=== PATIENT | male | born 1975 | race Caucasian/White ===

== ENCOUNTER 2017-02-02 11:19 | Emergency (ER) | payer MEDICAID ==
[2016-07-03 11:32] VITALS: BMI 37.4
[~2017-02-02 11:19] MED LIST: BUPROPION HCL150 M1 PO; COZAAR100 MG PO; NORVASC10 MG PO; OXYCODONE HCL10 MG PO; PROTONIX40 MG PO; VICTOZA0.6 MG/0.1 SQ
[2017-02-02 12:16] LABS: BASOPHILS 0.2 % (0.0-2.0); EOSINOPHILS 0.6 % (0-7); HEMATOCRIT 48.5 % (42.0-54.0); HEMOGLOBIN 16.8 g/dL (13.5-17.5); IMMATURE GRANULOCYTES 1.8 % (0-5); MCHC 34.6 g/dL (31.0-37.0); MCV 80.8 fL (80.0-100.0); MEAN PLATELET VOLUME 9.8 fL (7.4-10.4); MONOCYTES 5.1 % (2-11); NEUTROPHILS 74.3 % (40-80); PLATELET COUNT 222 10x3/uL (130-400); RDW 13.3 % (11.5-14.5); WBC 10.2 10x3/uL (4.8-10.8)
[2017-02-02 12:44] LABS: ALKALINE PHOSPHATASE 88 U/L (46-116); ALT (SGPT) 58 U/L (10-68); BILIRUBIN - TOTAL 0.45 mg/dL (0.2-1.3); CALC OSMOLALITY 275 mosm/kg (275-300); CALCIUM 9.3 mg/dL (8.5-10.1); CARBON DIOXIDE 23.8 mmol/L (21.0-32.0); CHLORIDE - SERUM 99 mmol/L (98-107); CREATININE - SERUM 0.9 mg/dL (0.6-1.3); GLUCOSE 241 mg/dL (74-106); POTASSIUM - SERUM 3.6 mmol/L (3.5-5.1); PROTEIN - SERUM 8.8 g/dL (6.4-8.2); SODIUM 134 mmol/L (136-145); UREA NITROGEN 13 mg/dL (7-18); eGFR NON AFRICAN AMERICAN > 90 mL/min (90-120)
[2017-02-02 12:51] LABS: CREATINE KINASE 128 UL (21-232)
[2017-02-02 12:53] LABS: TROPONIN-I < 0.017 ng/mL (0.000-0.060)
== END 2017-02-02 16:44 | disposition home or self-care (01) ==
LOC: D.ER 11:19
PROVIDERS: Family Medicine
DX: R07.89 Other chest pain (principal); R51 Headache; G47.30 Sleep apnea, unspecified; R00.0 Tachycardia, unspecified

== ENCOUNTER 2017-08-23 05:41 | Day surgery (SDC) | payer MEDICAID ==
[2017-08-22 15:29] LABS: HEMATOCRIT 43.5 % (42.0-54.0); HEMOGLOBIN 14.4 g/dL (13.5-17.5); MCH 27.8 pg (26.0-34.0); MCHC 33.1 g/dL (31.0-37.0); MEAN PLATELET VOLUME 9.2 fL (7.4-10.4); RBC 5.18 10x6/uL (4.20-6.10); RDW 13.3 % (11.5-14.5); WBC 7.1 10x3/uL (4.8-10.8)
[2017-08-22 15:42] LABS: CALC OSMOLALITY 282 mosm/kg (275-300); CALCIUM 9.1 mg/dL (8.5-10.1); CARBON DIOXIDE 26.1 mmol/L (21.0-32.0); CHLORIDE - SERUM 105 mmol/L (98-107); GLUCOSE 93 mg/dL (74-106); POTASSIUM - SERUM 3.7 mmol/L (3.5-5.1); SODIUM 141 mmol/L (136-145); UREA NITROGEN 19 mg/dL (7-18); eGFR NON AFRICAN AMERICAN 87 mL/min (90-120)
[~2017-08-23 05:41] MED LIST changes: +BUPROPION HCL100 M1 PO; -BUPROPION HCL150 M1 PO; +HYDROCODONE-APA1 TAB PO; +HYZAAR 100-25 T1 TAB PO; +VYVANSE60 MG PO
[2017-08-23 11:45] VITALS: BP 125/76; BMI 38.7
[2017-08-23] MEDS ORDERED: DILAUDID4 MG PO (17:30)
--- NOTE | 2017-08-23 18:23 | NUR ---
1805 BACK FROM LEFT SHOULDER SURGERY. DRESSING WITH SLIGHT BLOOD NOTED. ICE PACK APPLIED ARM IN SLING HAS BLOCK FINGERS NUMB. DENIES PAIN. PRESENT AND C/L IN REACH. FULL LIQUIDS SERVED.
--- NOTE | 2017-08-23 18:43 | NUR ---
183 ICE PACK TO RT SHOULDER. PAIN LEVEL A 1. STATES i AM SLEEPY. RESP NONLABORED. RT ARM IN SLING.
--- NOTE | 2017-08-23 18:46 | NUR ---
1846 WENT OVER DISCHARGE INSTRUCTIONS SCRIPT TO BE FILLED AND ICE PACK X 48 HOURS. KEEP SLING SHOT ON. INSTRUCTED ON CALLING OFFICE TOMORROW FOR APPOINTMENT DATE AND TIME NEEDS APPOINTMENT IN 10 TO 14 DAYS. WENT OVER DISHARE SHEET FOR SHOULDER AND BLOCK SHEET WITH PATIENT AND .VERBALLY UNDERSTANDS.
--- NOTE | 2017-08-23 19:18 | NUR ---
1914 DISCHARGED TO HOME WITH VIA W/C.
--- NOTE | 2017-08-23 19:18 | NUR ---
1905 IV DCD CATHETER INTACT. UP AND ARM IN SLING SHOT AND ASSISTED WITH DRESSING.
--- NOTE | 2017-09-03 14:00 | OP ---
PATIENT NAME: NETTIE HO MEDICAL RECORD: [id number] :76 LOCATION:[facility] ADMISSION DATE: SURGEON: DEONDRE BOUDREAUX MD DATE OF OPERATION: 08/23/2017 PREOPERATIVE DIAGNOSES: SLAP lesion of the left shoulder with biceps tendinitis, acromioclavicular arthritis. POSTOPERATIVE DIAGNOSES: SLAP lesion of the left shoulder with biceps tendinitis, acromioclavicular arthritis. PROCEDURES: 1. Arthroscopic SLAP repair. 2. Arthroscopic tenodesis. 3. Arthroscopic distal clavicle excision. SURGEON: Deondre Boudreaux MD ANESTHESIA: General. INTRAOPERATIVE COMPLICATIONS: None. SUMMARY OF PATHOLOGIC FINDINGS: Severe biceps tendinitis associated with very complex labral tear, essentially from the 9 o'clock to the 3 o'clock position requiring anterior superior and posterior superior fixation. Given the amount of biceps tendinitis as well as biceps tendon damage, I felt like that tenodesis was also required as well as debridement of the acromioclavicular joint. OPERATIVE SUMMARY IN DETAIL: After obtaining the appropriate preoperative orthopedic surgery consent as well as anesthetic consultation, evaluation, and clearance, the patient was brought to the operating room and placed on the operating table in supine position. After general laryngeal mask airway was administered, the patient was placed in a right lateral decubitus position. All pressure points were well padded to include down the peroneal pad as well as axillary roll. The patient was held firmly to the operating table using the vacuum pack suction system. Left upper extremity and shoulder were then prepped and draped in routine sterile fashion. The arm was held in the Arthrex traction boom at 30 degrees of forward flexion, 30 degrees of abduction with 10 pounds of traction laterally. Arthroscopy was established in the glenohumeral joint from the posterior portal. Anterior portal was established in the anterior safe interval. An accessory tertiary portal of Neviasea was created for the multiple 2.9 PushLocks that were needed. The entire superior aspect of the glenoid was debrided and decorticated in preparation for reapproximation. A total of 4 suture anchors were placed, 2 anterior and 2 posterior to the bicipital labral complex. This resulted in very good reapproximation of the labrum anteriorly and posteriorly using FiberTape. Next, the biceps tendon was tenotomized while being held with a spinal needle and in the groove. Dissection was carried down to the biceps tendon under then direct arthroscopic visualization, further debridement of the bicipital groove was carried out. At this point, a size 9 biceps Bio-Tenodesis screw from Arthrex was then deployed using the Bio-Tenodesis kit with good anchor fixation of the biceps tendon. Having completed this, attention was turned to the subacromial space. The patient did not need repeat subacromial decompression; however, the distal clavicle required further debridement and complete excision for the entire 1 cm after regrowth. This was done under a separate anterior arthroscopic portal under direct OPERATIVE REPORT [id number] NETTIE HO visualization. Having completed this, arthroscopy portals were closed in routine interrupted fashion using 4-0 Prolene. Sterile dressings were applied. The patient was awakened and taken to recovery room in stable condition. All final needle and sponge counts were correct. TRANSINT:[id number] Voice Confirmation ID: [id number] DOCUMENT ID: [id number] DEONDRE BOUDREAUX MD at 1400 CC: [id number] DICTATION DATE: 08/31/17 1112 MULTIFOLD OPERATOR: 08/31/17 1149 [facility] 08/23/17 [facility] [address] [place] [address]
== END 2017-08-23 19:15 | disposition home or self-care (01) ==
LOC: D.OPS 05:41 → D.PAN 16:30 → D.OPS 16:30
PROVIDERS: Anesthesiology
DX: S43.432A Superior glenoid labrum lesion of left shoulder, initial encounter (principal); M19.012 Primary osteoarthritis, left shoulder; M75.22 Bicipital tendinitis, left shoulder; I10 Essential (primary) hypertension; K21.9 Gastro-esophageal reflux disease without esophagitis; G47.30 Sleep apnea, unspecified; Z01.812 Encounter for preprocedural laboratory examination

== ENCOUNTER 2017-11-07 22:44 | Emergency (ER) | payer MEDICAID ==
[~2017-11-07 22:44] MED LIST changes: +DILAUDID4 MG PO
[2017-11-07 23:39] LABS: APPEARANCE CLEAR (CLEAR); BILIRUBIN NEGATIVE (NEGATIVE); COLOR YELLOW (YELLOW); GLUCOSE NEGATIVE (NEGATIVE); KETONE NEGATIVE (NEGATIVE); NITRITE NEGATIVE (NEGATIVE); PROTEIN NEGATIVE (NEGATIVE); UROBILINOGEN NORMAL (NORMAL)
[2017-11-07 23:40] LABS: BACTERIA FEW /hpf (NONE SEEN); EPITHELIAL CELLS 0-5 /hpf (0-5); MUCUS >1+ /lpf (NONE SEEN); RED CELLS - URINE 0-5 /hpf (0-5); WHITE CELLS - URINE 0-5 /hpf (0-5)
[2017-11-07 23:58] LABS: HEMATOCRIT 37.4 % (42.0-54.0); HEMOGLOBIN 12.7 g/dL (13.5-17.5); LYMPHOCYTES 20.6 % (15-50); MCH 27.1 pg (26.0-34.0); MCV 79.7 fL (80.0-100.0); MEAN PLATELET VOLUME 8.7 fL (7.4-10.4); NEUTROPHILS 71.9 % (40-80); PLATELET COUNT 250 10x3/uL (130-400); RBC 4.69 10x6/uL (4.20-6.10); RDW 13.6 % (11.5-14.5); WBC 11.3 10x3/uL (4.8-10.8)
[2017-11-08 00:07] LABS: ALBUMIN 3.8 g/dL (3.4-5.0); ALKALINE PHOSPHATASE 86 U/L (46-116); ALT (SGPT) 41 U/L (10-68); BILIRUBIN - TOTAL 0.24 mg/dL (0.2-1.3); CALC OSMOLALITY 283 mosm/kg (275-300); CALCIUM 9.2 mg/dL (8.5-10.1); CARBON DIOXIDE 27.1 mmol/L (21.0-32.0); CHLORIDE - SERUM 103 mmol/L (98-107); GLUCOSE 113 mg/dL (74-106); POTASSIUM - SERUM 3.5 mmol/L (3.5-5.1); PROTEIN - SERUM 7.7 g/dL (6.4-8.2); SODIUM 141 mmol/L (136-145); UREA NITROGEN 17 mg/dL (7-18); eGFR NON AFRICAN AMERICAN 87 mL/min (90-120)
== END 2017-11-08 03:51 | disposition home or self-care (01) ==
LOC: D.ER 22:44
PROVIDERS: Family Medicine
DX: R10.9 Unspecified abdominal pain (principal); I10 Essential (primary) hypertension

== ENCOUNTER → 2017-11-08 15:58 | Outpatient (CLI) | payer MEDICAID | END | disposition home or self-care (01) | LOC: D.CT 15:58 | DX: R91.8 Other nonspecific abnormal finding of lung field (principal); N28.89 Other specified disorders of kidney and ureter ==

== ENCOUNTER 2017-11-08 18:31 | Emergency (ER) | payer MEDICAID ==
[2017-11-08 19:45] LABS: APPEARANCE CLEAR (CLEAR); BILIRUBIN NEGATIVE (NEGATIVE); COLOR YELLOW (YELLOW); GLUCOSE NEGATIVE (NEGATIVE); KETONE NEGATIVE (NEGATIVE); NITRITE NEGATIVE (NEGATIVE); PROTEIN NEGATIVE (NEGATIVE); SPECIFIC GRAVITY 1.015 (1.005-1.020); UROBILINOGEN NORMAL (NORMAL)
[2017-11-08 19:46] LABS: RED CELLS - URINE 0-5 /hpf (0-5)
== END 2017-11-08 21:43 | disposition home or self-care (01) ==
LOC: D.ER 18:31
PROVIDERS: Family Medicine
DX: R31.9 Hematuria, unspecified (principal); R10.9 Unspecified abdominal pain; M79.1 Myalgia; M62.838 Other muscle spasm; I10 Essential (primary) hypertension

== ENCOUNTER 2017-11-11 02:29 | Emergency (ER) | payer MEDICAID ==
[2017-11-11 02:50] LABS: APPEARANCE CLEAR (CLEAR); BILIRUBIN NEGATIVE (NEGATIVE); COLOR YELLOW (YELLOW); GLUCOSE NEGATIVE (NEGATIVE); KETONE NEGATIVE (NEGATIVE); NITRITE NEGATIVE (NEGATIVE); PROTEIN NEGATIVE (NEGATIVE); SPECIFIC GRAVITY 1.015 (1.005-1.020); UROBILINOGEN NORMAL (NORMAL)
[2017-11-11 03:14] LABS: BASOPHILS 0.3 % (0-2); EOSINOPHILS 0.8 % (0-7); HEMATOCRIT 38.4 % (42.0-54.0); HEMOGLOBIN 13.3 g/dL (13.5-17.5); LYMPHOCYTES 26.4 % (15-50); MCH 27.7 pg (26.0-34.0); MCHC 34.6 g/dL (31.0-37.0); MCV 79.8 fL (80.0-100.0); MEAN PLATELET VOLUME 9.2 fL (7.4-10.4); MONOCYTES 7.3 % (2-11); NEUTROPHILS 64.2 % (40-80); PLATELET COUNT 229 10x3/uL (130-400); RBC 4.81 10x6/uL (4.20-6.10); RDW 13.6 % (11.5-14.5); WBC 7.1 10x3/uL (4.8-10.8)
[2017-11-11 03:36] LABS: ALBUMIN 3.7 g/dL (3.4-5.0); ALKALINE PHOSPHATASE 123 U/L (46-116); ALT (SGPT) 270 U/L (10-68); BILIRUBIN - TOTAL 0.91 mg/dL (0.2-1.3); C-REACTIVE PROTEIN 0.6 mg/dL (0.0-0.9); CALC OSMOLALITY 277 mosm/kg (275-300); CALCIUM 8.6 mg/dL (8.5-10.1); CARBON DIOXIDE 25.2 mmol/L (21.0-32.0); CHLORIDE - SERUM 99 mmol/L (98-107); CREATININE - SERUM 0.9 mg/dL (0.6-1.3); GLUCOSE 154 mg/dL (74-106); LIPASE 170 U/L (73-393); POTASSIUM - SERUM 3.7 mmol/L (3.5-5.1); PROTEIN - SERUM 7.6 g/dL (6.4-8.2); SODIUM 137 mmol/L (136-145); UREA NITROGEN 16 mg/dL (7-18); eGFR NON AFRICAN AMERICAN > 90 mL/min (90-120)
[2017-11-11 04:15] LABS: ERYTHROCYTE SEDIMENTATION RATE 19 mm/hr (0-15)
== END 2017-11-11 05:48 | disposition home or self-care (01) ==
LOC: D.ER 02:29
PROVIDERS: Family Medicine
DX: M54.5 Low back pain (principal); R79.89 Other specified abnormal findings of blood chemistry; I10 Essential (primary) hypertension

== ENCOUNTER 2017-12-03 12:48 | Inpatient (IN) | payer MEDICAID ==
[~2017-12-03] VITALS: Ht 182.9 cm; Wt 114.3 kg
[2017-12-03 17:16] LABS: BASOPHILS 0.3 % (0-2); EOSINOPHILS 3.4 % (0-7); HEMATOCRIT 39.9 % (42.0-54.0); HEMOGLOBIN 13.1 g/dL (13.5-17.5); IMMATURE GRANULOCYTES 0.8 % (0-5); LYMPHOCYTES 28.1 % (15-50); MCH 27.8 pg (26.0-34.0); MCHC 32.8 g/dL (31.0-37.0); MCV 84.5 fL (80.0-100.0); MEAN PLATELET VOLUME 9.9 fL (7.4-10.4); MONOCYTES 10.9 % (2-11); NEUTROPHILS 56.5 % (40-80); RBC 4.72 10x6/uL (4.20-6.10); RDW 13.6 % (11.5-14.5); WBC 9.1 10x3/uL (4.8-10.8)
[2017-12-03 17:32] LABS: PLATELET COUNT 302 10x3/uL (130-400)
[2017-12-03 17:40] LABS: ALBUMIN 3.5 g/dL (3.4-5.0); ALKALINE PHOSPHATASE 186 U/L (46-116); ALT (SGPT) 164 U/L (10-68); AMYLASE - SERUM 47 U/L (25-115); BILIRUBIN - TOTAL 1.01 mg/dL (0.2-1.3); CALC OSMOLALITY 284 mosm/kg (275-300); CALCIUM 8.5 mg/dL (8.5-10.1); CARBON DIOXIDE 22.1 mmol/L (21.0-32.0); CHLORIDE - SERUM 105 mmol/L (98-107); GLUCOSE 114 mg/dL (74-106); LIPASE 315 U/L (73-393); POTASSIUM - SERUM 4.1 mmol/L (3.5-5.1); PROTEIN - SERUM 7.5 g/dL (6.4-8.2); SODIUM 141 mmol/L (136-145); UREA NITROGEN 20 mg/dL (7-18); eGFR NON AFRICAN AMERICAN 87 mL/min (90-120)
[2017-12-03 19:56] VITALS: BP 129/90
[2017-12-03 23:00] VITALS: BP 142/86
[2017-12-04 01:29] VITALS: BP 135/84
[2017-12-04 04:59] VITALS: BP 125/94
[2017-12-04 05:27] LABS: BASOPHILS 0.2 % (0-2); EOSINOPHILS 2.6 % (0-7); HEMATOCRIT 36.9 % (42.0-54.0); HEMOGLOBIN 11.9 g/dL (13.5-17.5); IMMATURE GRANULOCYTES 0.7 % (0-5); LYMPHOCYTES 26.4 % (15-50); MCH 27.2 pg (26.0-34.0); MCHC 32.2 g/dL (31.0-37.0); MCV 84.2 fL (80.0-100.0); MONOCYTES 9.8 % (2-11); NEUTROPHILS 60.3 % (40-80); PLATELET COUNT 250 10x3/uL (130-400); RBC 4.38 10x6/uL (4.20-6.10); RDW 13.6 % (11.5-14.5); WBC 8.5 10x3/uL (4.8-10.8)
[2017-12-04 05:54] LABS: INR 1.04 (0.85-1.17); PROTIME 13.2 SECONDS (11.6-15.0)
[2017-12-04 06:02] LABS: ALBUMIN 3.2 g/dL (3.4-5.0); ALKALINE PHOSPHATASE 166 U/L (46-116); ALT (SGPT) 161 U/L (10-68); AMYLASE - SERUM 43 U/L (25-115); BILIRUBIN - DIRECT 0.58 mg/dL (0.00-0.30); BILIRUBIN - INDIRECT 0.44 mg/dL (0.00-1.00); BILIRUBIN - TOTAL 1.02 mg/dL (0.2-1.3); CALC OSMOLALITY 278 mosm/kg (275-300); CALCIUM 8.5 mg/dL (8.5-10.1); CARBON DIOXIDE 24.3 mmol/L (21.0-32.0); CHLORIDE - SERUM 104 mmol/L (98-107); CREATININE - SERUM 0.9 mg/dL (0.6-1.3); GLUCOSE 97 mg/dL (74-106); LIPASE 211 U/L (73-393); POTASSIUM - SERUM 3.9 mmol/L (3.5-5.1); PROTEIN - SERUM 7.4 g/dL (6.4-8.2); SODIUM 139 mmol/L (136-145); UREA NITROGEN 16 mg/dL (7-18); eGFR NON AFRICAN AMERICAN > 90 mL/min (90-120)
[2017-12-04 08:28] VITALS: BP 125/92
[2017-12-04 11:42] VITALS: Ht 182.9 cm; Wt 114.3 kg
[2017-12-04 12:08] VITALS: BP 118/84
[2017-12-04 12:24] LABS: APPEARANCE CLEAR (CLEAR); BILIRUBIN NEGATIVE (NEGATIVE); COLOR DK YELLOW (YELLOW); GLUCOSE NEGATIVE (NEGATIVE); KETONE NEGATIVE (NEGATIVE); NITRITE NEGATIVE (NEGATIVE); PROTEIN NEGATIVE (NEGATIVE); SPECIFIC GRAVITY 1.025 (1.005-1.020); UROBILINOGEN NORMAL (NORMAL)
[2017-12-04 16:19] VITALS: BP 117/71
[2017-12-04 22:39] VITALS: BP 100/72
[2017-12-05 02:54] VITALS: BP 112/74
[2017-12-05 05:31] VITALS: BP 109/77
[2017-12-05 06:19] LABS: BASOPHILS 0.3 % (0-2); EOSINOPHILS 3.5 % (0-7); HEMATOCRIT 33.8 % (42.0-54.0); HEMOGLOBIN 11.3 g/dL (13.5-17.5); IMMATURE GRANULOCYTES 1.1 % (0-5); LYMPHOCYTES 23.5 % (15-50); MCH 27.5 pg (26.0-34.0); MCHC 33.4 g/dL (31.0-37.0); MEAN PLATELET VOLUME 9.9 fL (7.4-10.4); MONOCYTES 11.6 % (2-11); PLATELET COUNT 225 10x3/uL (130-400); RBC 4.11 10x6/uL (4.20-6.10); RDW 13.4 % (11.5-14.5); WBC 7.1 10x3/uL (4.8-10.8)
[2017-12-05 06:35] LABS: ANION GAP 14.5 mmol/L (8-16); CALCIUM 8.6 mg/dL (8.5-10.1); CARBON DIOXIDE 24.9 mmol/L (21.0-32.0); POTASSIUM - SERUM 4.4 mmol/L (3.5-5.1)
[2017-12-05 06:36] LABS: CREATININE - SERUM 1.3 mg/dL (0.6-1.3)
[2017-12-05 06:47] LABS: MCV 82.2 fL (80.0-100.0)
[2017-12-05 07:57] VITALS: BP 121/75
[2017-12-05 12:30] VITALS: BP 115/72
[2017-12-05 16:28] VITALS: BP 138/74
[2017-12-05 23:32] VITALS: BP 113/78
[2017-12-06 04:00] VITALS: BP 126/75
[2017-12-06 07:59] VITALS: BP 113/73
[2017-12-06] MEDS ORDERED: HYDROCODONE-APA1 TAB PO (10:15)
== END 2017-12-06 12:24 | disposition home or self-care (01) | DRG 446 ==
LOC: D.SDCHOLD 12:48 → D.MS 12:48
PROVIDERS: Emergency Medicine; Internal Medicine Gastroenterology; Internal Medicine Nephrology
DX: K83.1 Obstruction of bile duct (principal); I10 Essential (primary) hypertension; G47.33 Obstructive sleep apnea (adult) (pediatric); D64.9 Anemia, unspecified; R94.5 Abnormal results of liver function studies

== ENCOUNTER → 2018-12-16 14:32 | Outpatient (CLI) | payer MEDICAID | END | disposition home or self-care (01) | LOC: D.MRI 12-12 16:30 | DX: M25.512 Pain in left shoulder (principal) ==

== ENCOUNTER → 2019-01-30 10:30 | Outpatient (CLI) | payer MEDICAID | END | disposition home or self-care (01) | LOC: D.MRI 10:30 | PROVIDERS: ATTEND Orthopaedic Surgery | DX: M54.12 Radiculopathy, cervical region (principal) ==

== ENCOUNTER 2019-08-08 16:51 | Emergency (ER) | payer MEDICAID ==
[~2019-08-08] VITALS: Ht 182.9 cm; Wt 127.3 kg
[2019-08-08 16:52] VITALS: Ht 182.9 cm; Wt 127.3 kg
[2019-08-08] MEDS ORDERED: AVAPRO150 MG PO (16:55)
[2019-08-08] MEDS ORDERED: IBUPROFEN800 MG PO (18:02)
[2019-08-08 18:31] VITALS: BP 158/90
== END 2019-08-08 18:32 | disposition home or self-care (01) ==
LOC: D.ER 16:51
DX: S60.221A Contusion of right hand, initial encounter (principal); X58.XXXA Exposure to other specified factors, initial encounter

== ENCOUNTER 2021-01-13 13:15 | Day surgery (SDC) | payer MEDICAID ==
[~2021-01-13] VITALS: Ht 182.9 cm; Wt 129.3 kg
--- NOTE | ~2021-01-13 | OP ---
PATIENT NAME: NETTIE HO MEDICAL RECORD: [id number] :76 LOCATION:[facility] ADMISSION DATE: SURGEON: MIKE MARTINEZ MD DATE OF OPERATION: 01/13/2021 PREOPERATIVE DIAGNOSES: 1. Right knee pain. 2. Medial meniscus tear. 3. Chondromalacia. POSTOPERATIVE DIAGNOSES: 1. Right knee pain. 2. Medial meniscus tear. 3. Chondromalacia. PROCEDURE PERFORMED: Right knee scope with partial medial meniscectomy, chondroplasty, and limited synovectomy. INDICATIONS FOR THE PROCEDURE: Mr. Ho is a 45-year-old male with history of left knee pain. Symptoms have been getting progressively worse. An MRI shows evidence of a tear in the medial meniscus as well as some chondromalacia. I talked to him about options for conservative versus surgical management. He has elected to proceed with surgery for right knee arthroscopy. Risks, benefits and alternatives of surgery were discussed with the patient and consent was obtained. DESCRIPTION OF THE PROCEDURE: The patient was met in the holding area where his identity and confirmation of procedure was performed. The right lower extremity was marked. He was taken to the operating room where he was placed supine on the operating table, and anesthesia was administered. A tourniquet was applied to the right thigh and the right leg was positioned in the leg hanks. Right lower extremity was prepped and draped in a sterile fashion. The patient received preoperative antibiotics and a timeout was performed before initiating the case. On initiation of the case, the leg was exsanguinated and the tourniquet was raised. Total tourniquet time was 22 minutes. We began with placement of our medial superior portal. I then inserted the cannula and there was a large joint effusion present. The knee was then filled with fluid. We then placed our anterolateral portal, inserted the camera and placed our anteromedial portal under direct visualization. Diagnostic knee arthroscopy was performed. There were small loose bodies of cartilage throughout the joint and inflammation/synovitis. Undersurface of the patella demonstrated grade II chondromalacia. There was a grade IV chondromalacia of the trochlea with a large flap of cartilage extending towards the lateral aspect. There were small amounts of cartilage in both the medial and lateral gutters. The medial compartment had grade III chondromalacia of the medial femoral condyle, grade II of the medial tibial plateau. There was a degenerative tear in the body and posterior horn of the medial meniscus. The ACL was intact. The lateral compartment was in good condition with just grade I chondromalacia of the lateral tibial plateau. Limited synovectomy was performed of the anterior tissues of the knee and the infrapatellar fat pad. A biter and shaver were used to perform a partial medial meniscectomy. The torpedo shaver was then used to smooth the surface of the medial femoral condyle. We then moved to the patellofemoral joint. The undersurface of the patella was smoothed with the shaver and the cartilage was debrided from around the trochlea extending most of the anterior surface until we were back to smooth edges. Before and after OPERATIVE REPORT [id number] NETTIE HO images were obtained. This completed our procedure. Instruments were removed and fluid was drained from the knee. The portal sites were infiltrated with 0.25% Marcaine with epinephrine. These were then closed with nylon suture. A sterile dressing was placed. The patient was turned back over to anesthesia where he was awakened, extubated, and taken to the recovery room in stable condition. POSTOPERATIVE PLAN: The patient may be weightbearing as tolerated on the right lower extremity. He is to start physical therapy in 2-3 days. We will see him back in clinic in 2 weeks. COMPLICATIONS: None. ESTIMATED BLOOD LOSS: 5 mL. ANESTHESIA: General. TRANSINT:[id number] Voice Confirmation ID: [id number] DOCUMENT ID: [id number] MIKE MARTINEZ MD CC: [id number] DICTATION DATE: 01/13/211755 AERODYNAMIC CONSULTANT: 01/13/212123 [facility] 01/13/21 [id number] [place] [address]
[~2021-01-13 13:15] MED LIST changes: +ADDERALL 20 MG20 M1 PO; +AVAPRO150 MG PO; +IBUPROFEN800 MG PO; +OXYCONTIN10 MG PO; +ROPINIROLE HCL2 MG PO
[2021-01-13 13:26] LABS: BASOPHILS 0.3 % (0-2); EOSINOPHILS 1.4 % (0-7); HEMATOCRIT 48.6 % (42.0-54.0); HEMOGLOBIN 16.6 g/dL (13.5-17.5); IMMATURE GRANULOCYTES 1.4 % (0-5); LYMPHOCYTES 44.1 % (15-50); MCH 27.5 pg (26.0-34.0); MCHC 34.2 g/dL (31.0-37.0); MCV 80.5 fL (80.0-100.0); MEAN PLATELET VOLUME 9.5 fL (7.4-10.4); MONOCYTES 11.8 % (2-11); NEUTROPHIL ABS# 1.49 10x3/uL (1.78-5.38); RBC 6.04 10x6/uL (4.20-6.10); RDW 13.4 % (11.5-14.5); WBC 3.6 10x3/uL (4.8-10.8)
[2021-01-13 13:27] LABS: PLATELET COUNT 160 10x3/uL (130-400)
[2021-01-13 13:34] LABS: CALC OSMOLALITY 277 mosm/kg (275-300); CALCIUM 8.7 mg/dL (8.5-10.1); CARBON DIOXIDE 28.8 mmol/L (21.0-32.0); CHLORIDE - SERUM 104 mmol/L (98-107); GLUCOSE 112 mg/dL (74-106); POTASSIUM - SERUM 4.1 mmol/L (3.5-5.1); SODIUM 138 mmol/L (136-145); UREA NITROGEN 14 mg/dL (7-18); eGFR NON AFRICAN AMERICAN 86 mL/min (90-120)
[2021-01-13 14:40] VITALS: BP 138/85; Ht 182.9 cm; Wt 129.3 kg
--- NOTE | 2021-01-13 19:25 | NUR ---
1815N PT ARRIVED TO ROOM REPORT RECIEVED. PT AWAKE BUT APEARS IN PAIN TO RIGHT KNEE. ELEVATED ON PILLOW. PT GIVEN JELLO. PUDDING CRACKERS AND ICE CREAM AND A SPRITE. IV SITE W/O SWELLING. DRESSING TO RIGHT KNEE CDI. PALP PULSE AND GOOD FEELING IN TOES. NO RX IN CHART. DR MARTINEZ PAGED X2. NO RETURN CALL. 1844 ER CALLED AND YUMIKO TAKING CALL FOR DR MARTINEZ. PT WAS NOT GIVEN A RX FOR PAIN POST OP. 1900 AT BEDSIDE. IV REMOVED AND PT MEDICATED FOR PAIN. INSTRUCTIONS GIVEN
== END 2021-01-13 19:20 | disposition home or self-care (01) ==
LOC: D.OPS 13:15
PROVIDERS: Anesthesiology; ATTEND Orthopaedic Surgery
DX: M25.561 Pain in right knee (principal); S83.241A Other tear of medial meniscus, current injury, right knee, initial encounter; X58.XXXA Exposure to other specified factors, initial encounter; M94.261 Chondromalacia, right knee; E11.9 Type 2 diabetes mellitus without complications; I10 Essential (primary) hypertension; K21.9 Gastro-esophageal reflux disease without esophagitis